=== PATIENT | female | born 1990 | race African-American/Black ===

== ENCOUNTER 2017-02-07 13:25 | Emergency (ER) | payer BC ==
--- NOTE | 2017-02-07 15:16 | EKG REPORT ---
SEVERITY:- ABNORMAL ECG - SINUS RHYTHM NONSPECIFIC T ABNORMALITIES, INFERIOR LEADS : Confirmed by: Latonia Braxton 07-Feb-2017 15:15:09
[2017-02-07 15:55] LABS: ABSOLUTE EOSINOPHILS # (AUTO) 0.1 10^3/uL (0.0-0.6); ABSOLUTE LYMPHOCYTES (AUTO) 2.3 10^3/uL (0.5-4.7); ABSOLUTE MONOCYTES (AUTO) 0.7 10^3/uL (0.1-1.4); ABSOLUTE NEUT (AUTO) 6.1 10^3/uL (1.7-8.2); BASOPHILS % (AUTO) 0.5 % (0-2); EOSINOPHILS % (AUTO) 0.6 % (0-6); HEMATOCRIT 41.6 % (36.0-47.0); HEMOGLOBIN 13.6 g/dL (12.0-15.5); HGB HCT DIFFERENCE -0.8; LYMPHOCYTES % (AUTO) 24.7 % (13-45); MEAN CORPUSCULAR HEMOGLOBIN 30.6 pg (27.0-33.4); MEAN CORPUSCULAR HGB CONC 32.6 g/dL (32.0-36.0); MEAN CORPUSCULAR VOLUME 94 fl (80-97); MONOCYTES % (AUTO) 7.9 % (3-13); RED BLOOD COUNT 4.43 10^6/uL (3.72-5.28); RED CELL DISTRIBUTION WIDTH 13.5 % (11.5-14.0); SEGMENTED NEUTROPHILS % (AUTO) 66.3 % (42-78); WHITE BLOOD COUNT 9.2 10^3/uL (4.0-10.5)
--- NOTE | 2017-02-07 16:07 | RADIOLOGY REPORT (SQ) ---
EXAM DESCRIPTION: CHEST PA/LAT COMPLETED DATE/TIME: 02/07/2017 3:45 pm REASON FOR STUDY: chest pain COMPARISON: 06/03/2015 EXAM PARAMETERS: NUMBER OF VIEWS: two views TECHNIQUE: Digital Frontal and Lateral radiographic views of the chest acquired. RADIATION DOSE: NA LIMITATIONS: none FINDINGS: LUNGS AND PLEURA: No opacities, masses or pneumothorax. No pleural effusion. MEDIASTINUM AND HILAR STRUCTURES: No masses or contour abnormalities. HEART AND VASCULAR STRUCTURES: Heart normal size. No evidence for failure. BONES: No acute findings. HARDWARE: None in the chest. OTHER: No other significant finding. IMPRESSION: NO SIGNIFICANT RADIOGRAPHIC FINDING IN THE CHEST. TECHNICAL DOCUMENTATION: JOB ID: [id number] [employer]- All Rights Reserved
[2017-02-07 16:11] LABS: ALANINE AMINOTRANSFERASE 25 U/L (9-52); ALBUMIN 4.5 g/dL (3.5-5.0); ALKALINE PHOSPHATASE 63 U/L (38-126); ANION GAP 13 (5-19); ASPARTATE AMINO TRANSFERASE 17 U/L (14-36); BILIRUBIN,DIRECT 0.3 mg/dL (0.0-0.4); BILIRUBIN,TOTAL 0.5 mg/dL (0.2-1.3); BLOOD UREA NITROGEN 10 mg/dL (7-20); CALCIUM 9.6 mg/dL (8.4-10.2); CARBON DIOXIDE 24 mmol/L (22-30); CHLORIDE 105 mmol/L (98-107); CREATINE KINASE 65 U/L (30-135); CREATININE RESULT 0.66 mg/dL (0.52-1.25); GLUCOSE 73 mg/dL (75-110); POTASSIUM 4.1 mmol/L (3.6-5.0); SODIUM 142.2 mmol/L (137-145); TOTAL PROTEIN 8.1 g/dL (6.3-8.2)
[2017-02-07 16:24] LABS: CREATINE KINASE MB < 0.22 ng/mL (<4.55); TROPONIN I < 0.012 ng/mL
[2017-02-07 16:55] VITALS: BP 117/72
--- NOTE | 2017-02-07 17:13 | ER Document Report ---
ED General - General Chief Complaint: Chest Pain Stated Complaint: CHEST PAIN Time Seen by Provider: 02/07/17 15:16 TRAVEL OUTSIDE OF THE [place] IN LAST 30 DAYS: No - HPI Patient complains to provider of: Chest pain Notes: Patient coming in for 24 hours of chest pain upper chest right chest. Patient states similar to when she had pericarditis in the past. Patient denies any fevers chills nausea vomiting recent illnesses recent travel. Patient denies any shortness of breath. - Related Data Allergies/Adverse Reactions: No Known Allergies Allergy (Verified 06/03/15 17:55) Past Medical History - Social History Smoking Status: Current Every Day Smoker Chew tobacco use (# tins/day): No Frequency of alcohol use: Occasional Drug Abuse: None Family History: None Patient has suicidal ideation: No Patient has homicidal ideation: No Endocrine Medical History: Denies: Hx Diabetes Mellitus Type 1, Hx Diabetes Mellitus Type 2 Renal/ Medical History: Denies: Hx Peritoneal Dialysis GI Medical History: Denies: Hx Irritable Bowel Psychiatric Medical History: Denies: Hx Anxiety Past Surgical History: Reports: Hx Orthopedic Surgery - right knee - Immunizations Immunizations up to date: Yes Hx Diphtheria, Pertussis, Tetanus Vaccination: Yes Review of Systems - Review of Systems Constitutional: No symptoms reported EENT: No symptoms reported Cardiovascular: Chest pain Respiratory: No symptoms reported Gastrointestinal: No symptoms reported Genitourinary: No symptoms reported Female Genitourinary: No symptoms reported Musculoskeletal: No symptoms reported Skin: No symptoms reported Hematologic/Lymphatic: No symptoms reported Neurological/Psychological: No symptoms reported -: Yes All other systems reviewed and negative Physical Exam - Vital signs Vitals: Temp Pulse Resp BP Pulse Ox 98.6 F 90 20 119/79 99 02/07/17 13:29 02/07/17 13:29 02/07/17 13:29 02/07/17 13:29 02/07/17 13:29 Interpretation: Normal - General General appearance: Appears well, Alert - HEENT Head: Normocephalic, Atraumatic Eyes: Normal Pupils: PERRL - Respiratory Respiratory status: No respiratory distress Chest status: Tender - Palpation of the upper chest right chest does reproduce patient's symptoms. Breath sounds: Normal Chest palpation: Normal - Cardiovascular Rhythm: Regular Heart sounds: Normal auscultation Murmur: No - Abdominal Inspection: Normal Distension: No distension Bowel sounds: Normal Tenderness: Nontender Organomegaly: No organomegaly - Back Back: Normal, Nontender - Extremities General upper extremity: Normal inspection, Nontender, Normal color, Normal ROM , Normal temperature General lower extremity: Normal inspection, Nontender, Normal color, Normal ROM , Normal temperature, Normal weight bearing. No: Jazmine's sign - Neurological Neuro grossly intact: Yes Cognition: Normal Orientation: AAOx4 [place] Coma Scale Eye Opening: Spontaneous [place] Coma Scale Verbal: Oriented [place] Coma Scale Motor: Obeys Commands [place]kin Coma Scale Total: 15 Speech: Normal Motor strength normal: LUE, RUE, LLE, RLE Sensory: Normal - Psychological Associated symptoms: Normal affect, Normal mood - Skin Skin Temperature: Warm Skin Moisture: Dry Skin Color: Normal Course - Re-evaluation Re-evalutation: 02/07/17 20:03 The patient has atypical chest pain as the patient's chest pain is not suggestive of pulmonary embolus, cardiac ischemia, aortic dissection, or other serious etiology. Given the extremely low risk of these diagnoses further testing and evaluation for these possibilities does not appear to be indicated at this time. The patient has been instructed to return if the symptoms worsen or change in any way. - Vital Signs Vital signs: Temp Pulse Resp BP Pulse Ox 97 F L 98 16 117/72 100 02/07/17 16:53 02/07/17 16:53 02/07/17 16:53 02/07/17 16:53 02/07/17 16:53 - Laboratory Result Diagrams: 02/07/17 15:38 02/07/17 15:38 Laboratory results interpreted by me: 02/07/17 15:38 Glucose 73 L Discharge - Discharge Clinical Impression: Chest wall pain Condition: Good Disposition: HOME, SELF-CARE Instructions: Chest Pain of Unclear Cause ([facility]), Chest Wall Pain ([facility]) Additional Instructions: Your laboratory studies chest x-ray EKG today are completely negative there is no signs of any damage to your heart infection in her lungs electrolyte abnormalities. More likely you are experiencing chest wall pain. Please make sure he follow-up with your primary care physician would recommend taking Tylenol Motrin for your pain control
== END 2017-02-07 16:57 | disposition home or self-care (01) ==
LOC: ER 13:25
DX: R07.89 Other chest pain (principal); F17.200 Nicotine dependence, unspecified, uncomplicated; Z86.79 Personal history of other diseases of the circulatory system
CPT/HCPCS: 36415; 71020; 80053; 82550; 82553; 84484; 85025; 93005; 93010; 99285

== ENCOUNTER 2017-06-09 16:58 | Emergency (ER) | payer BC ==
[2017-06-09] MEDS ORDERED: HYDROCODONE/ACETAMINOPHEN 5-325 MG TABLET PO ONE (18:29)
--- NOTE | 2017-06-09 18:35 | ER Document Report ---
ED Medical Screen (RME) - General Chief Complaint: Chest Pain Stated Complaint: CHEST PAIN Time Seen by Provider: 06/09/17 18:23 Notes: Patient is having right upper and lateral chest pain. He states he does have a history of pericarditis. Today she went to urgent care and they referred the patient here due to an no abnormal EKG. Today's EKG compared to old EKG shows some new inverted T waves in V4 and V5. Patient had previous inverted T waves in 3 and aVF and V3. Patient denies cough or cold symptoms she denies GI symptoms. TRAVEL OUTSIDE OF THE [place] IN LAST 30 DAYS: No - Related Data Allergies/Adverse Reactions: No Known Allergies Allergy (Verified 06/09/17 17:36) Past Medical History - Social History Chew tobacco use (# tins/day): No Frequency of alcohol use: Social Drug Abuse: Marijuana Endocrine Medical History: Denies: Hx Diabetes Mellitus Type 1, Hx Diabetes Mellitus Type 2 Renal/ Medical History: Denies: Hx Peritoneal Dialysis GI Medical History: Denies: Hx Irritable Bowel Psychiatric Medical History: Denies: Hx Anxiety Past Surgical History: Reports: Hx Orthopedic Surgery - right knee - Immunizations Immunizations up to date: Yes Hx Diphtheria, Pertussis, Tetanus Vaccination: Yes History of Influenza Vaccine for 05/2017 - 10/2017 Season: Refused Physical Exam - Vital signs Vitals: Temp Pulse Resp BP Pulse Ox 98.7 F 119 H 19 119/78 100 06/09/17 17:39 06/09/17 17:39 06/09/17 17:39 06/09/17 17:39 06/09/17 17:39 Course - Vital Signs Vital signs: Temp Pulse Resp BP Pulse Ox 98.7 F 119 H 19 119/78 100 06/09/17 17:39 06/09/17 17:39 06/09/17 17:39 06/09/17 17:39 06/09/17 17:39
--- NOTE | 2017-06-09 19:47 | RADIOLOGY REPORT (SQ) ---
EXAM DESCRIPTION: CHEST PA/LAT COMPLETED DATE/TIME: 06/09/2017 7:32 pm REASON FOR STUDY: cp COMPARISON: 02/07/2017. EXAM PARAMETERS: NUMBER OF VIEWS: two views TECHNIQUE: Digital Frontal and Lateral radiographic views of the chest acquired. RADIATION DOSE: NA LIMITATIONS: none FINDINGS: LUNGS AND PLEURA: No opacities, masses or pneumothorax. No pleural effusion. MEDIASTINUM AND HILAR STRUCTURES: No masses or contour abnormalities. HEART AND VASCULAR STRUCTURES: Heart normal size. No evidence for failure. BONES: No acute findings. HARDWARE: None in the chest. OTHER: No other significant finding. IMPRESSION: NO SIGNIFICANT RADIOGRAPHIC FINDING IN THE CHEST. TECHNICAL DOCUMENTATION: JOB ID: [id number] [employer]- All Rights Reserved
[2017-06-09 19:52] LABS: ABSOLUTE LYMPHOCYTES (AUTO) 2.2 10^3/uL (0.5-4.7); ABSOLUTE MONOCYTES (AUTO) 0.5 10^3/uL (0.1-1.4); ABSOLUTE NEUT (AUTO) 4.9 10^3/uL (1.7-8.2); BASOPHILS % (AUTO) 0.3 % (0-2); EOSINOPHILS % (AUTO) 0.5 % (0-6); HEMATOCRIT 35.9 % (36.0-47.0); HGB HCT DIFFERENCE 0.1; LYMPHOCYTES % (AUTO) 28.3 % (13-45); MEAN CORPUSCULAR HEMOGLOBIN 30.4 pg (27.0-33.4); MEAN CORPUSCULAR HGB CONC 33.4 g/dL (32.0-36.0); MEAN CORPUSCULAR VOLUME 91 fl (80-97); MONOCYTES % (AUTO) 6.8 % (3-13); RED BLOOD COUNT 3.94 10^6/uL (3.72-5.28); RED CELL DISTRIBUTION WIDTH 14.7 % (11.5-14.0); SEGMENTED NEUTROPHILS % (AUTO) 64.1 % (42-78); WHITE BLOOD COUNT 7.6 10^3/uL (4.0-10.5)
[2017-06-09 19:55] LABS: APPEARANCE,URINE SLIGHTLY-CLOUDY; BILIRUBIN,URINE NEGATIVE (NEGATIVE); GLUCOSE, URINE NEGATIVE (NEGATIVE); KETONES,URINE NEGATIVE (NEGATIVE); LEUKOCYTE ESTERASE,URINE NEGATIVE (NEGATIVE); NITRITE,URINE NEGATIVE (NEGATIVE); PROTEIN,URINE NEGATIVE (NEGATIVE); URINE SPECIFIC GRAVITY 1.011; UROBILINOGEN,URINE NEGATIVE mg/dL (<2.0)
[2017-06-09 20:08] LABS: ALANINE AMINOTRANSFERASE 28 U/L (9-52); ALBUMIN 4.4 g/dL (3.5-5.0); ALKALINE PHOSPHATASE 52 U/L (38-126); ANION GAP 13 (5-19); ASPARTATE AMINO TRANSFERASE 15 U/L (14-36); BILIRUBIN,DIRECT 0.3 mg/dL (0.0-0.4); BILIRUBIN,TOTAL 0.3 mg/dL (0.2-1.3); BLOOD UREA NITROGEN 9 mg/dL (7-20); CALCIUM 9.6 mg/dL (8.4-10.2); CARBON DIOXIDE 26 mmol/L (22-30); CHLORIDE 104 mmol/L (98-107); CREATININE RESULT 0.56 mg/dL (0.52-1.25); GLUCOSE 85 mg/dL (75-110); POTASSIUM 3.8 mmol/L (3.6-5.0); SODIUM 142.9 mmol/L (137-145); TOTAL PROTEIN 7.1 g/dL (6.3-8.2)
--- NOTE | 2017-06-09 22:42 | ER Document Report ---
ED Cardiac - General Chief Complaint: Chest Pain Stated Complaint: CHEST PAIN Time Seen by Provider: 06/09/17 18:23 Notes: The patient is a 27-year-old female, past medical history pericarditis, presents with 1 day of right sided chest pain that is a dull achy pain. She was at urgent care earlier today and referred to the ER due to an abnormal EKG. patient also having mild shortness of breath when she takes a deep breath. Patient denies OCP use, drug use, nausea, vomiting, fevers, hemoptysis, leg swelling, drug use, rash, abdominal pain, diarrhea or constipation. TRAVEL OUTSIDE OF THE [place] IN LAST 30 DAYS: No - Related Data Allergies/Adverse Reactions: No Known Allergies Allergy (Verified 06/09/17 17:36) Past Medical History - General Information source: Patient - Social History Smoking Status: Current Every Day Smoker Chew tobacco use (# tins/day): No Frequency of alcohol use: Social Drug Abuse: Marijuana Family History: None Patient has suicidal ideation: No Patient has homicidal ideation: No Endocrine Medical History: Denies: Hx Diabetes Mellitus Type 1, Hx Diabetes Mellitus Type 2 Renal/ Medical History: Denies: Hx Peritoneal Dialysis GI Medical History: Denies: Hx Irritable Bowel Psychiatric Medical History: Denies: Hx Anxiety Past Surgical History: Reports: Hx Orthopedic Surgery - right knee - Immunizations Immunizations up to date: Yes Hx Diphtheria, Pertussis, Tetanus Vaccination: Yes Review of Systems - Review of Systems Notes: REVIEW OF SYSTEMS: CONSTITUTIONAL: -fevers, -chills EENT: -eye pain, -difficulty swallowing, -nasal congestion CARDIOVASCULAR: +chest pain, -syncope. RESPIRATORY: -cough, +SOB GASTROINTESTINAL: -abdominal pain, -nausea, -vomiting, -diarrhea GENITOURINARY: -dysuria, -hematuria MUSCULOSKELETAL: -back pain, -neck pain SKIN: -rash or skin lesions. HEMATOLOGIC: -easy bruising or bleeding. LYMPHATIC: -swollen, enlarged glands. NEUROLOGICAL: -altered mental status or loss of consciousness, -headache, - neurologic symptoms PSYCHIATRIC: -anxiety, -depression. ALL OTHER SYSTEMS REVIEWED AND NEGATIVE. Physical Exam - Vital signs Vitals: Temp Pulse Resp BP Pulse Ox 98.7 F 119 H 19 119/78 100 06/09/17 17:39 06/09/17 17:39 06/09/17 17:39 06/09/17 17:39 06/09/17 17:39 - Notes Notes: PHYSICAL EXAMINATION: GENERAL: Well-appearing, well-nourished and in no acute distress. HEAD: Atraumatic, normocephalic. EYES: Pupils equal round and reactive to light, extraocular movements intact, sclera anicteric, conjunctiva are normal. ENT: nares patent, oropharynx clear without exudates. Moist mucous membranes. NECK: Normal range of motion, supple without lymphadenopathy LUNGS: Breath sounds clear to auscultation bilaterally and equal. No wheezes rales or rhonchi. HEART: Tachycardia without murmurs. Tenderness over right lateral chest wall. ABDOMEN: Soft, nontender, normoactive bowel sounds. No guarding, no rebound. No masses appreciated. EXTREMITIES: Normal range of motion, no pitting or edema. No cyanosis. NEUROLOGICAL: Cranial nerves grossly intact. Normal speech, normal gait. Normal sensory and motor exams. PSYCH: Normal mood, normal affect. SKIN: Warm, Dry, normal turgor, no rashes or lesions noted. Course - Re-evaluation Re-evalutation: Patient with reproducible right lateral chest wall pain. EKG shows sinus tachycardia, but no STEMI and troponin is negative. Due to her sinus tachycardia , unable to PERC her out. She does have an elevated d-dimer. CTA obtained to assess for presence of PE. CTA does not show any evidence of PE. Her tachycardia improved. Instructed her to stay hydrated and continue anti- inflammatories for any pain. She will follow with her primary care physician this week for further evaluation and treatment. - Vital Signs Vital signs: Temp Pulse Resp BP Pulse Ox 98.7 F 119 H 18 118/93 H 100 06/09/17 17:39 06/09/17 17:39 06/10/17 00:05 06/09/17 23:03 06/10/17 00:05 - Laboratory Result Diagrams: 06/09/17 19:15 06/09/17 19:15 Laboratory results interpreted by me: 06/09/17 06/09/17 19:15 19:15 Hct 35.9 L RDW 14.7 H D-Dimer 0.63 H - Diagnostic Test Radiology reviewed: Image reviewed, Reports reviewed Radiology results interpreted by me: CXR: NAD CTA Chest: NAD - EKG Interpretation by Me EKG shows normal: Sinus rhythm, [place], Intervals, QRS Complexes Rate: Tachycardia When compared to previous EKG there are: No significant change Additional EKG results interpreted by me: No STEMI. Discharge - Discharge Clinical Impression: Chest pain Qualifiers: Chest pain type: unspecified Qualified Code(s): R07.9 - Chest pain, unspecified Condition: Stable Disposition: HOME, SELF-CARE Additional Instructions: CHEST PAIN OF UNCLEAR CAUSE: The exact cause of your chest pain isn't clear. Fortunately, there is no evidence of a dangerous medical condition. Further testing may be required to find the source of the pain. Most often, we find that this pain is coming from the chest wall -- the muscles or rib joints in the chest. But chest pain can come from the lung and lung lining, the esophagus, the heart valves or heart lining, and even the stomach or gallbladder. Rest. Eat lightly until the pain is gone. We may prescribe medicine for pain and inflammation. You should call the physician immediately if the pain radiates to the shoulder, jaw or arms; if you start to run a fever or develop a cough; or if you develop shortness of breath, or other new or alarming symptoms. NORMAL EXAM AND WORKUP: At this time, your examination and workup show no significant abnormality. No significant abnormal physical findings were noted. All laboratory, EKG, and imaging (x-ray, CT scans, ultrasound) studies that were ordered show no significant abnormality. Although your examination and all studies that were ordered showed no significant abnormal finding, there are no examinations and no studies that are 100% accurate. There is always the possibility that some abnormality could exist and not be detected with physical examination or within the limits and capabilities of laboratory and other studies. You should return or follow up as you were instructed on your visit today for further evaluation if your symptoms do not resolve. CHEST WALL PAIN: Your chest pain may be coming from the chest wall. This is often caused by straining the muscles or joints in the chest during physical activity, direct trauma, coughing, or vigorous vomiting. Persons with arthritis are especially prone to this type of pain, due to inflammation of the cartilage joints near the breast bone. Occasionally, no cause can be found. Rest from strenuous physical activity. This kind of chest pain is usually made worse by movement of the chest. Depending on the symptoms, we may prescribe medicine for pain, muscle relaxation, and antiinflammatory effects. If the pain is new, and seems to be due to muscle strain, cold packs can help. Otherwise, apply gentle warmth to the painful area for 15 minutes every hour or two. You should call contact the doctor immediately if things change. Further evaluation is needed if you develop a fever or cough, if the nature of the pain changes, or if you become short of breath. FOLLOW-UP CARE: If you have been referred to a physician for follow-up care, call the physician s office for an appointment as you were instructed or within the next two days. If you experience worsening or a significant change in your symptoms, notify the physician immediately or return to the Emergency Department at any time for re-evaluation. Referrals: PRINCE LOPEZ MD [ACTIVE STAFF] - Follow up as needed
--- NOTE | 2017-06-09 23:12 | EKG REPORT ---
SEVERITY:- ABNORMAL ECG - SINUS TACHYCARDIA PROBABLE LEFT ATRIAL ABNORMALITY NONSPECIFIC T ABNORMALITIES, DIFFUSE LEADS : Confirmed by: Latonia Braxton 09-Jun-2017 23:11:18
--- NOTE | 2017-06-10 01:11 | RADIOLOGY REPORT (SQ) ---
EXAM DESCRIPTION: CTA CHEST COMPLETED DATE/TIME: 06/10/2017 12:04 am REASON FOR STUDY: chest pain, tachycardia, elevated d-dimer(0.63) COMPARISON: None. TECHNIQUE: CT scan of the chest performed using helical scanning technique with dynamic intravenous contrast injection. Images reviewed with lung, soft tissue and bone windows. Reconstructed coronal and sagittal MPR images reviewed. Additional 3 dimensional post-processing performed to develop Maximal Intensity Projection images (NC P). All images stored on PACS. All CT scanners at this facility use dose modulation, iterative reconstruction, and/or weight based d osing when appropriate to reduce radiation dose to as low as reasonably achievable (ALARA). [facility]: Dose Right [facility]: CareDose [facility]: Dose Right [facility]: Teradose 4D [facility]: [employer] CONTRAST TYPE AND DOSE: contrast/concentration: Isovue 370.00 mg/ml; Total Contrast Delivered: 71.0 ml; Total Saline Delivered: 50.0 ml Contrast bolus optimized for the pulmonary arteries. Not diagnostic for the aorta. RENAL FUNCTION: None required. The patient is less than 50 years old. RADIATION DOSE: Up-to-date CT equipment and radiation dose reduction techniques were employed. CTDIv ol: 14.3 mGy. DLP: 378 mGy-cm. . LIMITATIONS: None. FINDINGS: LUNGS AND PLEURA: No masses, infiltrates, pneumothorax. No pleural effusions, calcificati ons. AORTA AND GREAT VESSELS: No aneurysm. Contrast bolus not optimized for the aorta. HEART: No pericardial effusion. No significant coronary artery calcifications. PULMONARY ARTERIES: No emboli visualized in the main pulmonary arteries or the segmental branches. HILAR AND MEDIASTINAL STRUCTURES: No identified masses or abnormal nodes. HARDWARE: None in the chest. UPPER ABDOMEN: No significant findings. Limited exam. THYROID AND OTHER SOFT TISSUES: No masses. No adenopathy. BONES: No acute or significant finding. 3D MIPS: Confirm above findings. OTHER: No other significant finding. IMPRESSION: NORMAL CTA OF THE CHEST. NO PULMONARY EMBOLI. COMMENT: Quality ID # [id number]: Final reports with documentation of one or more dose reduction techniques (e.g., Automated exposure control, adjustment of the mA and/or kV according to patient size, use of iterative reconstruction technique) TECHNICAL DOCUMENTATION: JOB ID: [id number] [employer]- All Rights Reserved
[2017-06-10 01:28] VITALS: BP 126/90
== END 2017-06-10 01:28 | disposition home or self-care (01) ==
LOC: ER 16:58
DX: R07.9 Chest pain, unspecified (principal); F17.200 Nicotine dependence, unspecified, uncomplicated
CPT/HCPCS: 36415; 71020; 71275; 80053; 81001; 81025; 85025; 85379; 93005; 93010; 99285

== ENCOUNTER 2018-08-08 12:04 | Emergency (ER) | payer SELFPAY ==
[2018-08-08 12:11] VITALS: BP 121/80
--- NOTE | 2018-08-08 12:34 | ER Document Report ---
ED Medical Screen (RME) - General Chief Complaint: Abdominal Pain Stated Complaint: ABDOMINAL PAIN Time Seen by Provider: 08/08/18 12:26 TRAVEL OUTSIDE OF THE [place] IN LAST 30 DAYS: No - Related Data Allergies/Adverse Reactions: No Known Allergies Allergy (Verified 08/08/18 12:05) Past Medical History - Social History Chew tobacco use (# tins/day): No Frequency of alcohol use: None Drug Abuse: None Endocrine Medical History: Denies: Hx Diabetes Mellitus Type 1, Hx Diabetes Mellitus Type 2 Renal/ Medical History: Denies: Hx Peritoneal Dialysis GI Medical History: Denies: Hx Irritable Bowel Psychiatric Medical History: Denies: Hx Anxiety Past Surgical History: Reports: Hx Orthopedic Surgery - right knee - Immunizations Immunizations up to date: Yes Hx Diphtheria, Pertussis, Tetanus Vaccination: Yes History of Influenza Vaccine for 05/2017 - 10/2017 Season: Refused Physical Exam - Vital signs Vitals: Temp Pulse Resp BP Pulse Ox 98.8 F 98 16 121/80 100 08/08/18 12:09 08/08/18 12:09 08/08/18 12:09 08/08/18 12:09 08/08/18 12:09 Course - Re-evaluation Re-evalutation: 08/08/18 12:33 28-year-old healthy female who presents for evaluation of pain in her right upper quadrant. Woke her up from sleep made her feel nauseous she is been unable to eat since that time. Has not had anything to eat today. Denies fevers or chills episodes like this in the past. We will initiate workup for potential underlying cholecystitis I will plan for this patient undergo further investigation evaluation by [facility] provider, the the appropriate diagnostics, disposition and workup will be deferred to that provider. I have performed a rapid screening examination and they will require further evaluation. - Vital Signs Vital signs: Temp Pulse Resp BP Pulse Ox 98.8 F 98 16 121/80 100 08/08/18 12:09 08/08/18 12:09 08/08/18 12:09 08/08/18 12:09 08/08/18 12:09 Doctor's Discharge - Discharge Referrals: JORDAN HESTER PA-C [Primary Care Provider] - Follow up as needed
[2018-08-08 13:06] LABS: ABSOLUTE EOSINOPHILS # (AUTO) 0.1 10^3/uL (0.0-0.6); ABSOLUTE LYMPHOCYTES (AUTO) 2.2 10^3/uL (0.5-4.7); ABSOLUTE MONOCYTES (AUTO) 0.7 10^3/uL (0.1-1.4); ABSOLUTE NEUT (AUTO) 5.1 10^3/uL (1.7-8.2); BASOPHILS % (AUTO) 0.5 % (0-2); EOSINOPHILS % (AUTO) 0.8 % (0-6); HEMATOCRIT 36.2 % (36.0-47.0); LYMPHOCYTES % (AUTO) 27.3 % (13-45); MEAN CORPUSCULAR HGB CONC 33.2 g/dL (32.0-36.0); MEAN CORPUSCULAR VOLUME 94 fl (80-97); MONOCYTES % (AUTO) 8.4 % (3-13); PLATELET COUNT 192 10^3/uL (150-450); RED BLOOD COUNT 3.87 10^6/uL (3.72-5.28); RED CELL DISTRIBUTION WIDTH 14.1 % (11.5-14.0); TOTAL CELLS COUNTED % (AUTO) 100 %; WHITE BLOOD COUNT 8.1 10^3/uL (4.0-10.5)
[2018-08-08 13:12] LABS: APPEARANCE,URINE SLIGHTLY-CLOUDY; BILIRUBIN,URINE NEGATIVE (NEGATIVE); COLOR,URINE YELLOW; GLUCOSE, URINE NEGATIVE (NEGATIVE); KETONES,URINE TRACE mg/dL (NEGATIVE); LEUKOCYTE ESTERASE,URINE NEGATIVE (NEGATIVE); NITRITE,URINE NEGATIVE (NEGATIVE); PROTEIN,URINE NEGATIVE (NEGATIVE); URINE SPECIFIC GRAVITY 1.015; UROBILINOGEN,URINE NEGATIVE mg/dL (<2.0)
--- NOTE | 2018-08-08 14:01 | RADIOLOGY REPORT (SQ) ---
EXAM DESCRIPTION: U/S ABDOMEN LIMITED W/O DOP COMPLETED DATE/TIME: 08/08/2018 1:50 pm REASON FOR STUDY: abdominal pain COMPARISON: CT chest 06/09/2017, 04/13/2014 TECHNIQUE: Dynamic and static grayscale images acquired of the abdomen and recorded on PACS. Additio nal selected color Doppler and spectral images recorded. LIMITATIONS: None. FINDINGS: PANCREAS: Midline pancreas unremarkable LIVER: No masses. Echotexture normal. LIVER VASCULATURE: Normal directional flow of the main portal vein and hepatic veins. GALLBLADDER: No stones. Normal wall thickness. No pericholecystic fluid. ULTRASOUND-DETECTED MEREDITH'S SIGN: Negative. INTRAHEPATIC DUCTS AND COMMON DUCT: CBD and intrahepatic ducts normal caliber. No filling defects. INFERIOR VENA CAVA: Normal flow. AORTA: No aneurysm. RIGHT KIDNEY: Normal size. Normal echogenicity. No solid or suspicious masses. No hydronephrosis. No calcifications. PERITONEAL AND RIGHT PLEURAL SPACE: No ascites or effusions. OTHER: No other significant findings. IMPRESSION: NORMAL RIGHT UPPER QUADRANT ULTRASOUND. TECHNICAL DOCUMENTATION: JOB ID: [id number]- All Rights Reserved Reading location - IP/workstation name: [email or web address]
[2018-08-08 14:20] LABS: ALANINE AMINOTRANSFERASE 16 U/L (9-52); ALBUMIN 4.1 g/dL (3.5-5.0); ALKALINE PHOSPHATASE 49 U/L (38-126); ANION GAP 6 (5-19); ASPARTATE AMINO TRANSFERASE 19 U/L (14-36); BILIRUBIN,DIRECT 0.2 mg/dL (0.0-0.4); BILIRUBIN,TOTAL 0.6 mg/dL (0.2-1.3); BLOOD UREA NITROGEN 11 mg/dL (7-20); CALCIUM 9.4 mg/dL (8.4-10.2); CARBON DIOXIDE 27 mmol/L (22-30); CHLORIDE 108 mmol/L (98-107); GLUCOSE 83 mg/dL (75-110); LIPASE 29.6 U/L (23-300); SODIUM 140.9 mmol/L (137-145); TOTAL PROTEIN 6.8 g/dL (6.3-8.2)
--- NOTE | 2018-08-08 14:30 | ER Document Report ---
ED General - General Chief Complaint: Abdominal Pain Stated Complaint: ABDOMINAL PAIN Time Seen by Provider: 08/08/18 12:26 TRAVEL OUTSIDE OF THE [place] IN LAST 30 DAYS: No - HPI Notes: Patient is a 28-year-old female with no significant past medical history who presents to the ED complaining of right mid abdominal pain that does not radiate. Patient states that the pain started this morning and has been relatively constant. She has had a decreased p.o. intake with occasional nausea no vomiting. Patient states that she is urinating normally and is having normal bowel movements. She has not noticed any vaginal discharge, odor, or bleeding. Denies any surgical history to her abdomen. Denies any drug allergies. Denies any headache, fever, neck pain, URI, sore throat, chest pain, palpitations, syncope, cough, shortness of breath, wheeze, dyspnea, vomiting/diarrhea, urinary retention, dysuria, hematuria, or rash. - Related Data Allergies/Adverse Reactions: No Known Allergies Allergy (Verified 08/08/18 12:05) Past Medical History - Social History Smoking Status: Current Every Day Smoker Chew tobacco use (# tins/day): No Frequency of alcohol use: None Drug Abuse: None Family History: None Patient has suicidal ideation: No Patient has homicidal ideation: No Endocrine Medical History: Denies: Hx Diabetes Mellitus Type 1, Hx Diabetes Mellitus Type 2 Renal/ Medical History: Denies: Hx Peritoneal Dialysis GI Medical History: Denies: Hx Irritable Bowel Psychiatric Medical History: Denies: Hx Anxiety Past Surgical History: Reports: Hx Orthopedic Surgery - right knee - Immunizations Immunizations up to date: Yes Hx Diphtheria, Pertussis, Tetanus Vaccination: Yes Review of Systems - Review of Systems -: Yes All other systems reviewed and negative Physical Exam - Vital signs Vitals: Temp Pulse Resp BP Pulse Ox 98.8 F 98 16 121/80 100 08/08/18 12:09 08/08/18 12:09 08/08/18 12:09 08/08/18 12:09 08/08/18 12:09 - Notes Notes: PHYSICAL EXAMINATION: GENERAL: Well-appearing, well-nourished and in no acute distress. HEAD: Atraumatic, normocephalic. EYES: Pupils equal round and reactive to light, extraocular movements intact, s clera anicteric, conjunctiva are normal. ENT: Nares patent and without discharge. oropharynx clear without exudates. No tonsilar hypertrophy or erythema. Moist mucous membranes. NECK: Normal range of motion, supple without lymphadenopathy LUNGS: Breath sounds clear to auscultation bilaterally and equal. No wheezes rales or rhonchi. HEART: Regular rate and rhythm without murmurs, rubs, gallops. ABDOMEN: Soft, nondistended abdomen. No guarding, no rebound. No masses appreciated. Normal bowel sounds present. No CVA tenderness bilaterally. + tenderness to the rt lateral abd. No tenderness specifically at McBurney point. Bailey negative. Musculoskeletal: FROM to passive/active. Strength 5+/5. Extremities: No cyanosis, clubbing, or edema b/l. Peripheral pulses 2+. Capil black refill less than 3 seconds. NEUROLOGICAL: Normal speech, normal gait. Normal sensory, motor exams PSYCH: Normal mood, normal affect. SKIN: Warm, Dry, normal turgor, no rashes or lesions noted. Course - Re-evaluation Re-evalutation: 08/08/18 14:30 Patient is an afebrile, well-hydrated, 28-year-old female who presents to the ED with right lateral abdominal pain, unspecified. Vitals are acceptable without any significant tachycardia, tachypnea, or hypoxia. PE is otherwise unremarkable. CBC, CMP, urinalysis, hCG unremarkable. Right upper quadrant ultrasound was unremarkable. Patient is nontoxic-appearing and is able to tolerate p.o. without difficulty. Due to the nonspecific nature of the patient's symptomatology and presentation, I did have Dr. Valdivia also eval the patient. He does not believe this to be acute appendicitis or a surgical abd based on her exam, no white count, and being afebrile. He recommends close monitoring at home and strict return precautions. No further labs or imaging warranted at this time. Low suspicion/risk for acute appendicitis, bowel obstruction, acute cholecystitis, acute cholangitis, perforated diverticulitis, incarcerated hernia, pancreatitis, perforated ulcer, peritonitis, sepsis, pelvic inflammatory disease, ectopic , tubo-ovarian abscess, ovarian torsion, or other systemic emergent condition at this time. Patient is aware that her condition can change from initial presentation and she needs to monitor symptoms closely and seek medical attention if any acute changes. Conservative measures otherwise for symptoms. Recheck with your PCM in 2-3 days. Patient to return to the emergency department tomorrow morning if she has persistent symptoms or sooner if anything worsens. Return to the ED with any worsening/concerning symptoms otherwise as reviewed in discharge. Patient is in agreement. - Vital Signs Vital signs: Temp Pulse Resp BP Pulse Ox 98.8 F 98 16 121/80 100 08/08/18 12:09 08/08/18 12:09 08/08/18 12:09 08/08/18 12:09 08/08/18 12:09 - Laboratory Result Diagrams: 08/08/18 12:51 08/08/18 12:51 Laboratory results interpreted by me: 08/08/18 08/08/18 12:51 12:51 RDW 14.1 H Urine Ketones TRACE H Discharge - Discharge Clinical Impression: Nonspecific abdominal pain Condition: Stable Disposition: HOME, SELF-CARE Instructions: Abdominal Pain ([facility]), Antinausea Medication ([facility]) Additional Instructions: Maintain adequate fluid and food intake [place] diet ([facility] Bananas, rice, apples, toast, etc Zofran as needed tylenol if needed Monitor for any worsening symptoms Make sure you are staying hydrated enough to urinate and have normal BM's Recheck with your PCM in 2-3 days If there are any worsening symptoms today or persistent symptoms into tomorrow morning you need to return to the emergency department for further evaluation* Consider consult with Gastroenterology for ongoing/worsening symptoms Return to the ED with any worsening symptoms and/or development of fever, headache, chest pain, palpitations, syncope, shortness of breath, trouble breathing, abdominal pain, n/v/d, blood in stool/urine, weakness, or other worsening symptoms that are concerning to you. Prescriptions: Ondansetron [Zofran Odt 4 mg Tablet] 1 - 2 tab PO Q4H PRN #15 tab.rapdis PRN Reason: For Nausea/Vomiting Forms: Smoking Cessation Education Referrals: JORDAN HESTER PA-C [Primary Care Provider] - Follow up as needed HENRY SANCHEZ MD [ACTIVE STAFF] - Follow up as needed
[2018-08-08] MEDS ORDERED: ONDANSETRON HCL INJ/PF 4 MG/2 ML SDV IV ONE (14:35)
[2018-08-08] MEDS ORDERED: KETOROLAC TROMETHAMINE INJ/PF 30 MG/1 ML SDV IV ONE (14:35)
== END 2018-08-08 15:05 | disposition home or self-care (01) ==
LOC: ER 12:04
DX: R10.9 Unspecified abdominal pain (principal); F17.200 Nicotine dependence, unspecified, uncomplicated
CPT/HCPCS: 99284; 96374; 96375; 36415; 83690; 85025; 81025; 80053; 81001; 76705; J1885; J2405

== ENCOUNTER 2018-08-10 15:26 | Emergency (ER) | payer SELFPAY ==
[2018-08-10] MEDS ORDERED: KETOROLAC TROMETHAMINE INJ/PF 30 MG/1 ML SDV IV ONE (16:35)
[2018-08-10 17:36] LABS: ABSOLUTE BASOPHILS # (AUTO) 0.1 10^3/uL (0.0-0.2); ABSOLUTE EOSINOPHILS # (AUTO) 0.1 10^3/uL (0.0-0.6); ABSOLUTE LYMPHOCYTES (AUTO) 1.9 10^3/uL (0.5-4.7); ABSOLUTE MONOCYTES (AUTO) 0.7 10^3/uL (0.1-1.4); ABSOLUTE NEUT (AUTO) 5.5 10^3/uL (1.7-8.2); BASOPHILS % (AUTO) 0.7 % (0-2); HEMATOCRIT 38.9 % (36.0-47.0); LYMPHOCYTES % (AUTO) 22.7 % (13-45); MEAN CORPUSCULAR HEMOGLOBIN 31.1 pg (27.0-33.4); MEAN CORPUSCULAR HGB CONC 33.5 g/dL (32.0-36.0); MEAN CORPUSCULAR VOLUME 93 fl (80-97); PLATELET COUNT 178 10^3/uL (150-450); RED BLOOD COUNT 4.19 10^6/uL (3.72-5.28); RED CELL DISTRIBUTION WIDTH 13.8 % (11.5-14.0); SEGMENTED NEUTROPHILS % (AUTO) 66.6 % (42-78); TOTAL CELLS COUNTED % (AUTO) 100 %; WHITE BLOOD COUNT 8.2 10^3/uL (4.0-10.5)
[2018-08-10 17:51] LABS: ALANINE AMINOTRANSFERASE 19 U/L (9-52); ALBUMIN 4.5 g/dL (3.5-5.0); ALKALINE PHOSPHATASE 56 U/L (38-126); ANION GAP 5 (5-19); ASPARTATE AMINO TRANSFERASE 20 U/L (14-36); BILIRUBIN,DIRECT 0.2 mg/dL (0.0-0.4); BILIRUBIN,TOTAL 0.5 mg/dL (0.2-1.3); BLOOD UREA NITROGEN 10 mg/dL (7-20); CALCIUM 9.9 mg/dL (8.4-10.2); CARBON DIOXIDE 28 mmol/L (22-30); CHLORIDE 107 mmol/L (98-107); GLUCOSE 89 mg/dL (75-110); POTASSIUM 4.7 mmol/L (3.6-5.0); SODIUM 140.3 mmol/L (137-145); TOTAL PROTEIN 7.3 g/dL (6.3-8.2)
--- NOTE | 2018-08-10 18:02 | ER Document Report ---
ED Medical Screen (RME) - General TRAVEL OUTSIDE OF THE [place] IN LAST 30 DAYS: No <ROMANA CAMPOS - Last Filed: 08/10/18 17:52> <ETELVINA VILLANUEVA - Last Filed: 08/10/18 21:33> - General Chief Complaint: Abdominal Pain Stated Complaint: RIGHT SIDE PAIN Time Seen by Provider: 08/10/18 16:27 Notes: 28-year-old female who presents to the emergency department today with complaints of lower abdominal pain. Patient was seen on 08/08 for similar pain. Patient states yesterday her pain was "still there but somewhat better". Patient states today the pain increased again. Patient has associated nausea and vomiting. Patient denies any diarrhea, fevers, or vaginal discharge. I have greeted and performed a rapid initial assessment of this patient. A comprehensive ED assessment and evaluation of the patient, analysis of test results, and completion of the medical decision making process will be conducted by additional ED providers. Review of systems: Constitutional: Denies: Fevers Gastrointestinal: Lower abdominal pain. Nausea. Vomiting. Denies: Diarrhea Genitourinary: Denies: Vaginal discharge PHYSICAL EXAM GENERAL: Alert, interacts well. No acute distress. HEAD: Normocephalic, atraumatic. EYES: Pupils equal, round, and reactive to light. Extraocular movements intact. ENT: Oral mucosa moist, tongue midline. NECK: Full range of motion. Supple. Trachea midline. LUNGS: No respiratory distress. ABDOMEN: RUQ tenderness with palpation. EXTREMITIES: Moves all 4 extremities spontaneously. NEUROLOGICAL: Alert and oriented x3. Normal speech. PSYCH: Normal affect, normal mood. SKIN: Warm, dry, normal turgor. No rashes or lesions noted. (ROMANA CAMPOS) - Related Data Allergies/Adverse Reactions: No Known Allergies Allergy (Verified 08/10/18 15:31) Past Medical History - Social History Chew tobacco use (# tins/day): No Frequency of alcohol use: None Drug Abuse: None Endocrine Medical History: Denies: Hx Diabetes Mellitus Type 1, Hx Diabetes Mellitus Type 2 Renal/ Medical History: Denies: Hx Peritoneal Dialysis GI Medical History: Denies: Hx Irritable Bowel Psychiatric Medical History: Denies: Hx Anxiety Past Surgical History: Reports: Hx Orthopedic Surgery - right knee - Immunizations Immunizations up to date: Yes Hx Diphtheria, Pertussis, Tetanus Vaccination: Yes History of Influenza Vaccine for 05/2017 - 10/2017 Season: Refused <ROMANA CAMPOS - Last Filed: 08/10/18 17:52> - Vital signs Vitals: Temp Pulse Resp BP Pulse Ox 98.9 F 92 17 109/67 98 08/10/18 15:54 08/10/18 15:54 08/10/18 15:54 08/10/18 15:54 08/10/18 15:54 Course - Laboratory Result Diagrams: 08/10/18 17:20 08/10/18 17:20 <ROMANA CAMPOS - Last Filed: 08/10/18 17:52> - Laboratory Result Diagrams: 08/10/18 17:20 08/10/18 17:20 <ETELVINA VILLANUEVA - Last Filed: 08/10/18 21:33> - Vital Signs Vital signs: Temp Pulse Resp BP Pulse Ox 98.8 F 74 16 121/77 100 08/10/18 19:13 08/10/18 19:13 08/10/18 19:13 08/10/18 19:13 08/10/18 19:13 Doctor's Discharge <ROMANA CAMPOS - Last Filed: 08/10/18 17:52> <ETELVINA VILLANUEVA - Last Filed: 08/10/18 21:33> - Discharge Clinical Impression: Abdominal pain, Constipation Condition: Stable Disposition: HOME, SELF-CARE Instructions: Abdominal Pain ([facility]), Constipation ([facility]), Family Physicians / Practices Additional Instructions: Please return to the emergency department if you have any worsening, or concern of your symptoms. Please return to the emergency department if you develop chest pain, difficulty breathing, severe abdominal pain, or ongoing vomiting. Please follow-up with your primary care physician in 2-3 days and any other recommended physicians. If prescribed, take all medications as directed. If you have any questions or concerns do not hesitate to return the emergency department for evaluation. Take MiraLAX at home 2-3 times a day until you began having soft regular bowel movements. Then decrease her usage to 1 time a day or every other day as needed to obtain daily soft bowel movements. Referrals: [facility] [Provider Group] - Follow up in 3-5 days Scribe Documentation - Scribe Written by Scribe:: Clementina Coronado, 08/10/2018 1802 acting as scribe for :: Maricelek <ROMANA CAMPOS - Last Filed: 08/10/18 17:52>
[2018-08-10 18:24] LABS: APPEARANCE,URINE SLIGHTLY-CLOUDY; BILIRUBIN,URINE NEGATIVE (NEGATIVE); COLOR,URINE YELLOW; GLUCOSE, URINE NEGATIVE (NEGATIVE); KETONES,URINE NEGATIVE (NEGATIVE); LEUKOCYTE ESTERASE,URINE NEGATIVE (NEGATIVE); NITRITE,URINE NEGATIVE (NEGATIVE); PROTEIN,URINE NEGATIVE (NEGATIVE); URINE SPECIFIC GRAVITY 1.017; UROBILINOGEN,URINE NEGATIVE mg/dL (<2.0)
[2018-08-10] MEDS ORDERED: POLYETHYLENE GLYCOL 3350 POWDER 17 GM/1 PACKET PO ONE (18:50)
--- NOTE | 2018-08-10 18:55 | ER Document Report ---
ED General - General Chief Complaint: Abdominal Pain Stated Complaint: RIGHT SIDE PAIN Time Seen by Provider: 08/10/18 16:27 TRAVEL OUTSIDE OF THE [place] IN LAST 30 DAYS: No - HPI Onset: Other - 2 days Onset/Duration: Gradual, Constant Quality of pain: Achy, Cramping Severity: Moderate Associated symptoms: Nausea, Vomiting Exacerbated by: Movement Relieved by: Denies Similar symptoms previously: No Notes: Patient is a 28-year-old female that presents to the emergency department for chief complaint of right-sided abdominal pain. Patient reports she has had right-sided pain in her abdomen in the upper and lower quadrant radiating to her right flank for the last 2 days. She states today she felt nauseated and had some "dry heaves". She does report decreased appetite. She denies any diarrhea but does states she is having very small hard bowel movements. She states she is concerned she may be constipated. She took Pepto-Bismol which gave her no relief. She has not taken any [id number] medicine for constipation. She denies any fevers, dysuria, hematuria, chest pain and shortness of breath. Past Medical History: History of pericarditis Past Surgical History: Pilonidal cyst drainage Social History: Daily marijuana. Daily tobacco. Denies alcohol. Family History: Reviewed and noncontributory for presenting illness Allergies: Reviewed, see documented allergy list. REVIEW OF SYSTEMS: CONSTITUTIONAL : No fever No chills No diaphoresis No recent illness EENT: No vision changes No congestion No sore throat CARDIOVASCULAR: No chest pain No palpitations RESPIRATORY: No shortness of breath No cough No difficulty breathing GASTROINTESTINAL: abdominal pain nausea vomiting No diarrhea Constipation GENITOURINARY: No dysuria No hematuria No difficulty urinating MUSCULOSKELETAL: No back pain No leg pain No arm pain SKIN: No rashes No lesions LYMPHATIC: No swollen, enlarged glands. NEUROLOGICAL: No lightheadedness No headache No weakness No paresthesias PSYCHIATRIC: No anxiety No depression PHYSICAL EXAMINATION: Vital signs reviewed, nursing noted reviewed. GENERAL: Well-appearing, well-nourished and in no acute distress. HEAD: Atraumatic, normocephalic. EYES: Eyes appear normal, extraocular movements intact, sclera anicteric, conjunctiva are normal. ENT: nares patent, oropharynx clear without exudates. Moist mucous membranes. NECK: Normal range of motion, supple without lymphadenopathy LUNGS: Breath sounds clear to auscultation bilaterally and equal. No wheezes rales or rhonchi. HEART: Regular rate and rhythm without murmurs ABDOMEN: Soft, mild right upper and lower quadrant tenderness, negative Bailey sign, normoactive bowel sounds. No rebound, guarding, or rigidity. No masses appreciated. EXTREMITIES: Nontender, good range of motion, no pitting or edema. NEUROLOGICAL: No focal neurological deficits. Moves all extremities spontaneously Motor and sensory grossly intact on exam. PSYCH: Normal mood, normal affect. SKIN: Warm, Dry, normal turgor, no rashes or lesions noted on exposed skin - Related Data Allergies/Adverse Reactions: No Known Allergies Allergy (Verified 08/10/18 15:31) Past Medical History - Social History Smoking Status: Current Every Day Smoker Chew tobacco use (# tins/day): No Frequency of alcohol use: None Drug Abuse: None Family History: None Patient has suicidal ideation: No Patient has homicidal ideation: No Endocrine Medical History: Denies: Hx Diabetes Mellitus Type 1, Hx Diabetes Mellitus Type 2 Renal/ Medical History: Denies: Hx Peritoneal Dialysis GI Medical History: Denies: Hx Irritable Bowel Psychiatric Medical History: Denies: Hx Anxiety Past Surgical History: Reports: Hx Orthopedic Surgery - right knee - Immunizations Immunizations up to date: Yes Hx Diphtheria, Pertussis, Tetanus Vaccination: Yes Physical Exam - Vital signs Vitals: Temp Pulse Resp BP Pulse Ox 98.9 F 92 17 109/67 98 08/10/18 15:54 08/10/18 15:54 08/10/18 15:54 08/10/18 15:54 08/10/18 15:54 Course - Re-evaluation Re-evalutation: 08/10/18 18:52 Vitals reviewed. Nursing notes reviewed. Patient is afebrile and nontoxic in appearance. Her lab work is unremarkable. She has no leukocytosis. Her symptoms have been ongoing for the last 2 days. With her not having any fevers or leukocytosis I do not suspect appendicitis or acute cholecystitis. Patient has no hematuria or urinary tract infection to suggest ureterolithiasis or pyelonephritis. She has been reporting constipation and will be started on MiraLAX at home. She was counseled on return precautions to the emergency room. She will be referred to primary care for follow-up. She is stable and in agreement with this plan. She did have improvement of her pain after Toradol given in triage. Laboratory 08/10/18 08/10/18 08/10/18 17:20 17:20 17:20 WBC 8.2 RBC 4.19 Hgb 13.0 Hct 38.9 MCV 93 MCH 31.1 MCHC 33.5 RDW 13.8 Plt Count 178 Seg Neutrophils % 66.6 Lymphocytes % 22.7 Monocytes % 9.0 Eosinophils % 1.0 Basophils % 0.7 Absolute Neutrophils 5.5 Absolute Lymphocytes 1.9 Absolute Monocytes 0.7 Absolute Eosinophils 0.1 Absolute Basophils 0.1 Sodium 140.3 Potassium 4.7 Chloride 107 Carbon Dioxide 28 Anion Gap 5 BUN 10 Creatinine 0.85 Est GFR ( Amer) > 60 Est GFR (Non-Af Amer) > 60 Glucose 89 Calcium 9.9 Total Bilirubin 0.5 Direct Bilirubin 0.2 Neonat Total Bilirubin Not Reportable Neonat Direct Bilirubin Not Reportable Neonat Indirect Bili Not Reportable AST 20 ALT 19 Alkaline Phosphatase 56 Total Protein 7.3 Albumin 4.5 Urine Color YELLOW Urine Appearance SLIGHTLY-CLOUDY Urine pH 7.0 Ur Specific [place] 1.017 Urine Protein NEGATIVE Urine Glucose (UA) NEGATIVE Urine Ketones NEGATIVE Urine Blood NEGATIVE Urine Nitrite NEGATIVE Urine Bilirubin NEGATIVE Urine Urobilinogen NEGATIVE Ur Leukocyte Esterase NEGATIVE Urine WBC (Auto) 1 Urine RBC (Auto) 0 Urine Bacteria (Auto) TRACE Squamous Epi Cells Auto <1 Urine Mucus (Auto) OCC Urine Ascorbic Acid NEGATIVE Urine HCG, Qual NEGATIVE - Vital Signs Vital signs: Temp Pulse Resp BP Pulse Ox 98.9 F 92 17 109/67 98 08/10/18 15:54 08/10/18 15:54 08/10/18 15:54 08/10/18 15:54 08/10/18 15:54 - Laboratory Result Diagrams: 08/10/18 17:20 08/10/18 17:20 Discharge - Discharge Clinical Impression: Abdominal pain Qualifiers: Abdominal location: unspecified location Qualified Code(s): R10.9 - Unspecified abdominal pain Constipation Qualifiers: Constipation type: unspecified constipation type Qualified Code(s): K59.00 - Constipation, unspecified Condition: Stable Disposition: HOME, SELF-CARE Instructions: Abdominal Pain ([facility]), Constipation ([facility]), Family Physicians / Practices Additional Instructions: Please return to the emergency department if you have any worsening, or concern of your symptoms. Please return to the emergency department if you develop chest pain, difficulty breathing, severe abdominal pain, or ongoing vomiting. Please follow-up with your primary care physician in 2-3 days and any other recommended physicians. If prescribed, take all medications as directed. If you have any questions or concerns do not hesitate to return the emergency department for evaluation. Take MiraLAX at home 2-3 times a day until you began having soft regular bowel movements. Then decrease her usage to 1 time a day or every other day as needed to obtain daily soft bowel movements. Referrals: [facility] [Provider Group] - Follow up in 3-5 days
[2018-08-10 19:16] VITALS: BP 121/77
== END 2018-08-10 19:13 | disposition home or self-care (01) ==
LOC: ER 15:26
DX: K59.00 Constipation, unspecified (principal); R10.9 Unspecified abdominal pain; R63.0 Anorexia; R10.10 Upper abdominal pain, unspecified; R10.30 Lower abdominal pain, unspecified; F17.200 Nicotine dependence, unspecified, uncomplicated
CPT/HCPCS: 99284; 96374; 36415; 85025; 81025; 80053; 81001; J3490; J1885

== ENCOUNTER 2019-06-21 12:37 | Emergency (ER) | payer SELFPAY ==
--- NOTE | 2019-06-21 12:49 | ER Document Report ---
ED Medical Screen (RME) - General Chief Complaint: Abscess Stated Complaint: POSSIBLE ABSCESS Time Seen by Provider: 06/21/19 12:45 Mode of Arrival: Ambulatory Information source: Patient Notes: 29-year-old female presented to ED for an dental abscess to the right upper palate. She has a history of pericarditis from a dental infection in the past. She is also had pilonidal cyst and right knee surgery. She states her last menstrual period was June 18, 2019. States she smokes cigarettes half pack a day and smokes marijuana no alcohol. She denies chest pain at this time I have greeted and performed a rapid initial assessment of this patient. A comprehensive ED assessment and evaluation of the patient, analysis of test results and completion of medical decision making process will be conducted by an additional ED providers. TRAVEL OUTSIDE OF THE [place] IN LAST 30 DAYS: No - Related Data Allergies/Adverse Reactions: No Known Allergies Allergy (Verified 08/10/18 15:31) Past Medical History Endocrine Medical History: Denies: Hx Diabetes Mellitus Type 1, Hx Diabetes Mellitus Type 2 Renal/ Medical History: Denies: Hx Peritoneal Dialysis GI Medical History: Denies: Hx Irritable Bowel Psychiatric Medical History: Denies: Hx Anxiety Past Surgical History: Reports: Hx Orthopedic Surgery - right knee - Immunizations Immunizations up to date: Yes Hx Diphtheria, Pertussis, Tetanus Vaccination: Yes Physical Exam - Vital signs Vitals: Temp Pulse Resp BP Pulse Ox 99.1 F 73 16 133/82 H 98 06/21/19 12:43 06/21/19 12:43 06/21/19 12:43 06/21/19 12:43 06/21/19 12:43 Course - Vital Signs Vital signs: Temp Pulse Resp BP Pulse Ox 99.1 F 73 16 133/82 H 98 06/21/19 12:43 06/21/19 12:43 06/21/19 12:43 06/21/19 12:43 06/21/19 12:43
[2019-06-21 13:21] LABS: APPEARANCE,URINE CLEAR; BILIRUBIN,URINE NEGATIVE (NEGATIVE); COLOR,URINE YELLOW; GLUCOSE, URINE NEGATIVE (NEGATIVE); KETONES,URINE 80 mg/dL (NEGATIVE); PROTEIN,URINE 30 mg/dL (NEGATIVE); URINE SPECIFIC GRAVITY 1.032; UROBILINOGEN,URINE NEGATIVE mg/dL (<2.0)
[2019-06-21 13:25] LABS: ABSOLUTE BASOPHILS # (AUTO) 0.1 10^3/uL (0.0-0.2); ABSOLUTE EOSINOPHILS # (AUTO) 0.1 10^3/uL (0.0-0.6); ABSOLUTE LYMPHOCYTES (AUTO) 2.4 10^3/uL (0.5-4.7); ABSOLUTE MONOCYTES (AUTO) 0.8 10^3/uL (0.1-1.4); ABSOLUTE NEUT (AUTO) 7.1 10^3/uL (1.7-8.2); BASOPHILS % (AUTO) 0.5 % (0-2); EOSINOPHILS % (AUTO) 0.7 % (0-6); HEMATOCRIT 36.3 % (36.0-47.0); HEMOGLOBIN 12.1 g/dL (12.0-15.5); LYMPHOCYTES % (AUTO) 23.1 % (13-45); MEAN CORPUSCULAR HEMOGLOBIN 30.9 pg (27.0-33.4); MEAN CORPUSCULAR HGB CONC 33.2 g/dL (32.0-36.0); MEAN CORPUSCULAR VOLUME 93 fl (80-97); MONOCYTES % (AUTO) 7.9 % (3-13); PLATELET COUNT 172 10^3/uL (150-450); RED CELL DISTRIBUTION WIDTH 14.2 % (11.5-14.0); SEGMENTED NEUTROPHILS % (AUTO) 67.8 % (42-78); TOTAL CELLS COUNTED % (AUTO) 100 %; WHITE BLOOD COUNT 10.4 10^3/uL (4.0-10.5)
[2019-06-21 13:42] LABS: URINE AMPHETAMINES SCREEN NEGATIVE; URINE BARBITURATES SCREEN NEGATIVE; URINE BENZODIAZEPINES SCREEN NEGATIVE; URINE COCAINE SCREEN NEGATIVE; URINE MARIJUANA (THC) SCREEN UNCONFIRMED POSITIVE; URINE METHADONE SCREEN NEGATIVE; URINE PHENCYCLIDINE SCREEN NEGATIVE
[2019-06-21 13:44] LABS: ALBUMIN 4.1 g/dL (3.5-5.0); ALKALINE PHOSPHATASE 59 U/L (38-126); ANION GAP 10 (5-19); ASPARTATE AMINO TRANSFERASE 18 U/L (14-36); BILIRUBIN,DIRECT 0.1 mg/dL (0.0-0.4); BILIRUBIN,TOTAL 0.7 mg/dL (0.2-1.3); BLOOD UREA NITROGEN 9 mg/dL (7-20); CARBON DIOXIDE 23 mmol/L (22-30); CHLORIDE 107 mmol/L (98-107); GLUCOSE 74 mg/dL (75-110); POTASSIUM 3.6 mmol/L (3.6-5.0); TOTAL PROTEIN 7.1 g/dL (6.3-8.2)
[2019-06-21] MEDS ORDERED: LIDOCAINE 2% VISCOUS SOLN 20 ML UDCUP PO ONE (18:23)
--- NOTE | 2019-06-21 18:35 | ER Document Report ---
ED General - General Chief Complaint: Abscess Stated Complaint: POSSIBLE ABSCESS Time Seen by Provider: 06/21/19 12:45 Primary Care Provider: MAILE COBB DDS [NO LOCAL MD] - Follow up in 1 week (for dentistry follow up) Mode of Arrival: Ambulatory TRAVEL OUTSIDE OF THE [place] IN LAST 30 DAYS: No - HPI Notes: 29 year old female to the ED with C/O upper right dental pain and dental abscess that has gotten worse in the past two days. Denies fevers, chills, drooling, headache, inability to open mouth, SOB. She states that she smokes. She has not seen a dentist in some times. OTC medicines are not working for her pain. - Related Data Allergies/Adverse Reactions: No Known Allergies Allergy (Verified 06/21/19 12:52) Home Medications: ibuprogen Past Medical History - General Information source: Patient - Social History Smoking Status: Current Some Day Smoker Chew tobacco use (# tins/day): No Frequency of alcohol use: None Drug Abuse: Marijuana Family History: None, Reviewed & Not Pertinent Patient has suicidal ideation: No Patient has homicidal ideation: No Endocrine Medical History: Denies: Hx Diabetes Mellitus Type 1, Hx Diabetes Mellitus Type 2 Renal/ Medical History: Denies: Hx Peritoneal Dialysis GI Medical History: Denies: Hx Irritable Bowel Psychiatric Medical History: Denies: Hx Anxiety Past Surgical History: Reports: Hx Orthopedic Surgery - right knee - Immunizations Immunizations up to date: Yes Hx Diphtheria, Pertussis, Tetanus Vaccination: Yes Review of Systems - Review of Systems Constitutional: denies: Chills, Fever EENT: Mouth pain, Dental problem Cardiovascular: denies: Chest pain, Palpitations, Syncope, Dizziness, Lightheaded Respiratory: denies: Cough, Short of breath Gastrointestinal: denies: Abdominal pain, Diarrhea, Nausea, Vomiting Genitourinary: No symptoms reported Female Genitourinary: No symptoms reported Musculoskeletal: No symptoms reported Skin: No symptoms reported Hematologic/Lymphatic: No symptoms reported Neurological/Psychological: No symptoms reported -: Yes All other systems reviewed and negative Physical Exam - Vital signs Vitals: Temp Pulse Resp BP Pulse Ox 99.1 F 73 16 133/82 H 98 06/21/19 12:43 06/21/19 12:43 06/21/19 12:43 06/21/19 12:43 06/21/19 12:43 Interpretation: Normal - General General appearance: Appears well, Alert - HEENT Head: Normocephalic, Atraumatic Eyes: Normal Pupils: PERRL Ears: Normal External canal: Normal Tympanic membrane: Normal Sinus: Normal Nasal: Normal Mouth/Lips: Normal. No: Angioedema Mucous membranes: Normal Pharynx: Other - there are multiple dental caries throughout, but there is TTP over the right incisor and to the palate beside it there is a fluctuant dental abscess. it is not actively draining. Neck: Normal, Supple - Respiratory Respiratory status: No respiratory distress Chest status: Nontender Breath sounds: Normal Chest palpation: Normal - Cardiovascular Rhythm: Regular Heart sounds: Normal auscultation Murmur: No - Abdominal Inspection: Normal Distension: No distension Bowel sounds: Normal Tenderness: Nontender Organomegaly: No organomegaly - Back Back: Normal, Nontender - Extremities General lower extremity: No: Jazmine's sign - Neurological Neuro grossly intact: Yes Cognition: Normal Orientation: AAOx4 [place] Coma Scale Eye Opening: Spontaneous [place] Coma Scale Verbal: Oriented Distant Coma Scale Motor: Obeys Commands Distant Coma Scale Total: 15 Speech: Normal Motor strength normal: LUE, RUE, LLE, RLE Sensory: Normal - Psychological Associated symptoms: Normal affect, Normal mood - Skin Skin Temperature: Warm Skin Moisture: Dry Skin Color: Normal Course - Re-evaluation Re-evalutation: With a 16 guage needle, after patient swish viscous lidocaine, aspirated the abscess. Pus immediately began to drain. Patient did began to vomit due to the taste of the purulence despite swishing and spitting with water. Her nausea was well controlled with IM phenergan and her vomiting resolved. She was given Abx, pain meds and discharged home with instructions to follow up. She has been encouraged to return if worse. She agrees with the plan. - Vital Signs Vital signs: Temp Pulse Resp BP Pulse Ox 98.4 F 99 12 113/70 99 06/21/19 18:40 06/21/19 18:40 06/21/19 18:40 06/21/19 18:40 06/21/19 18:40 - Laboratory Result Diagrams: 06/21/19 13:00 06/21/19 13:00 Laboratory results interpreted by me: 06/21/19 06/21/1906/21/19 13:00 13:00 13:00 RDW 14.2 H Glucose 74 L Urine Protein 30 H Urine Ketones 80 H Discharge - Discharge Clinical Impression: Dental abscess Condition: Stable Disposition: HOME, SELF-CARE Instructions: Dental Infection or Abscess ([facility]) Additional Instructions: COMPLETE ALL ANTIBIOTICS. TAKE PAIN MEDS PRESCRIBED. RETURN IF WORSE. FOLLOW UP WITH DENTIST. Prescriptions: Clindamycin HCl 300 mg PO TID #30 capsule Hydrocodone/Acetaminophen [Secretary 5-325 mg Tablet] 1 tab PO Q6H #10 tablet Chlorhexidine Gluconate [Peridex] 15 ml MM BID #1 bottle Referrals: MAILE COBB DDS [NO LOCAL MD] - Follow up in 1 week (for dentistry follow up)
[2019-06-21 18:53] VITALS: BP 113/70
[2019-06-21] MEDS ORDERED: PROMETHAZINE HCL INJ 50 MG/1 ML VIAL IM ONE (18:57)
[2019-06-21] MEDS ORDERED: PROMETHAZINE HCL INJ 25 MG/1 ML VIAL IM ONE (19:15)
== END 2019-06-21 19:22 | disposition home or self-care (01) ==
LOC: ER 12:37
DX: K04.7 Periapical abscess without sinus (principal); F17.200 Nicotine dependence, unspecified, uncomplicated
CPT/HCPCS: 99282; 96374; 96375; 36415; 84703; 85025; 80053; 81001; 80307; 41800; J3490; J2550